=== PATIENT | female | born 1980 | race Caucasian/White ===

== ENCOUNTER 2018-05-03 10:44 | Outpatient (CLI) ==
[2015-04-16 14:12] VITALS: BMI 27.4
--- NOTE | 2018-05-03 11:57 | CT ---
EXAM: CT of the sinuses without contrast History: Chronic sinusitis. Technique: Multiplanar CT images through the sinuses were obtained without the administration of IV contrast Findings: Orbits are intact. Visualized intracranial contents demonstrate no acute findings. No ac [place] fracture or dislocation. 2.2 cm mucous retention cyst or polyp within the inferior left maxillar y sinus. Minimal mucosal thickening of the anterior sphenoid sinuses. Paranasal sinuses are otherwi se clear. Mastoid air cells are clear. Nasal septum is bowed mildly to the left. Bilateral ostiomea lashawn units are not occluded. A few mildly enlarged bilateral neck lymph nodes measuring up to 1 cm in short axis diameter. Periapical dental lucency involving one of the anterior right maxillary teeth. Impression: 1. Mucous retention cyst or polyp within the inferior left maxillary sinus. 2. Minimal mucosal thickening of the anterior sphenoid sinuses. 3. A few mildly enlarged bilateral neck lymph nodes are most likely reactive. 4. Periapical dental lucency involving one of the right anterior maxillary teeth. This could repres ent odontogenic cyst or periapical dental abscess. Correlate with dental exam.
== END 2018-05-03 10:45 | disposition home or self-care (01) ==
LOC: RAD 10:44
PROVIDERS: ATTEND Physician Assistant
DX: J32.9 Chronic sinusitis, unspecified (principal)